=== PATIENT | female | born 1975 | race Asian ===

== ENCOUNTER 2017-04-18 20:50 | Inpatient (IN) | payer SELFPAY ==
[~2017-04-18] VITALS: Ht 157.5 cm; Wt 62.6 kg
[2017-04-18] MEDS ORDERED: OXYTOCIN 10 UNITS/ML VIAL IM SCH (21:30)
[2017-04-18] MEDS ORDERED: AMPICILLIN 2,000 MG in NACL 0.9% MINI-BAG PLUS 100 ML IV SCH (21:30)
[2017-04-18] MEDS ORDERED: BUPIVACAINE 0.125%/NS PREMIX 250 ML ONE (21:30)
[2017-04-18] MEDS ORDERED: CARBOPROST 250 MCG/ML AMP IM PRN (21:30)
[2017-04-18] MEDS ORDERED: OXYTOCIN 20 UNITS in LACTATED RINGERS 1,000 ML IV SCH (21:30)
[2017-04-18] MEDS ORDERED: METHYLERGONOVINE 0.2 MG/ML AMP IM PRN (21:30)
[2017-04-18] MEDS: LACTATED RINGERS 1,000 ML IV SCH ×2 (21:35→23:49)
[2017-04-18] MEDS ORDERED: AMPICILLIN 2,000 MG VIAL ONE (21:43)
[2017-04-18] MEDS ORDERED: OXYTOCIN 20 UNITS/LR PREMIX 1,000 ML IV ONE (21:44)
[2017-04-18 22:18] LABS: BASOPHILS # (AUTO) 0.2 K/uL (0.00-0.22); BASOPHILS % (AUTO) 2.1 % (0.0-2.0); EOSINOPHILS # (AUTO) 0.1 K/uL (0-0.4); EOSINOPHILS % (AUTO) 0.5 % (0.0-4.0); HEMATOCRIT 36.3 % (36-48); LYMPHOCYTES # (AUTO) 3.1 K/uL (2.5-16.5); LYMPHOCYTES % (AUTO) 26.7 % (20.5-51.1); MEAN CORPUSCULAR HEMOGLOBIN 31 pg (27-31); MEAN CORPUSCULAR HGB CONC 33 g/dL (33-37); MEAN CORPUSCULAR VOLUME 94 fL (80-94); MONOCYTES # (AUTO) 0.9 K/uL (0.8-1.0); MONOCYTES % (AUTO) 8.3 % (1.7-9.3); NEUTROPHILS # (AUTO) 7.1 K/uL (1.8-7.7); NEUTROPHILS % (AUTO) 62.4 % (42.2-75.2); PLATELET COUNT (AUTO) 170 K/uL (140-450); RED BLOOD CELL COUNT(AUTO) 3.86 MIL/uL (4.20-5.40); RED CELL DISTRIBUTION WIDTH 12.9 % (11.6-13.7); WHITE BLOOD COUNT (AUTO) 11.4 K/uL (4.8-10.8)
[2017-04-18 22:45] LABS: APPEARANCE,URINE SL CLOUDY (CLEAR); BILIRUBIN,URINE NEGATIVE (NEGATIVE); BLOOD, URINE 3+ (NEGATIVE); COLOR,URINE YELLOW (YELLOW); LEUKOCYTE ESTERASE ,URINE NEGATIVE (NEGATIVE); NITRITE, URINE NEGATIVE (NEGATIVE); UGLUCOSE NEGATIVE (NEGATIVE)
[2017-04-18 23:09] LABS: RBC,URINE 80-100 /HPF (0-5); WBC,URINE 0-5 (RARE) /HPF (0-5)
[2017-04-18] MEDS ORDERED: OXYTOCIN 10 UNITS/ML VIAL ONE (23:29)
[2017-04-18] MEDS ORDERED: PREN-546 PO (23:56)
[2017-04-18] MEDS ORDERED: FERR325E14 PO (23:56)
[2017-04-19] VITALS: BP 134/84
[2017-04-19] MEDS ORDERED: AMPICILLIN 1,000 MG in NACL 0.9% MINI-BAG PLUS 50 ML IV SCH ×2
[2017-04-19] MEDS ORDERED: HYDROcodone/APAP 5/325 MG 1 TAB TAB PO PRN (00:15)
[2017-04-19] MEDS ORDERED: MEASLES, MUMPS, AND RUBELLA 1 VIAL SQVAC PRN (00:15)
[2017-04-19] MEDS ORDERED: BENZOCAINE/MENTHOL 20%-0.5% 60 GM CAN TP PRN (00:15)
[2017-04-19] MEDS ORDERED: OXYTOCIN 10 UNITS/ML VIAL IM PRN (00:15)
[2017-04-19] MEDS ORDERED: oxyCODONE/APAP 5/325 MG 1 TAB TAB PO PRN (00:15)
[2017-04-19] MEDS ORDERED: TEMAZEPAM 15 MG CAP PO PRN (00:15)
[2017-04-19] MEDS ORDERED: METHYLERGONOVINE 0.2 MG/ML AMP IM PRN (00:15)
--- NOTE | 2017-04-19 08:37 | NUR ---
PATIENT HAS BEEN SCREENED AND CATEGORIZED LOW NUTRITION RISK. PATIENT WILL BE SEEN WITHIN 7 DAYS OF ADMISSION. 04/24/[address]
[2017-04-19] MEDS: IBUPROFEN 800 MG TAB PO PRN ×2 (08:39→14:48)
[2017-04-19] MEDS ORDERED: DOCUSATE SOD/SENNA 50/8.6 MG 1 TAB PO SCH (21:00)
[2017-04-20] MEDS: IBUPROFEN 800 MG TAB PO PRN ×3 (04:15→22:10)
[2017-04-21] MEDS ORDERED: IBUP-2218 PO (07:19)
[2017-04-21] MEDS: IBUPROFEN 800 MG TAB PO PRN (08:22)
== END 2017-04-21 12:30 | disposition home or self-care (01) | DRG 775 ==
LOC: MLD 20:50 → MFCC 04-19 04:00
PROVIDERS: ADMIT Obstetrics & Gynecology; ATTEND Obstetrics & Gynecology
PROC: 10E0XZZ Delivery of Products of Conception, External Approach (ICD-10-PCS; principal; 2017-04-19)
PROC: 0W8NXZZ Division of Female Perineum, External Approach (ICD-10-PCS; 2017-04-19)
PROC: 00HU33Z Insertion of Infusion Device into Spinal Canal, Percutaneous Approach (ICD-10-PCS; 2017-04-19)
PROC: 3E0R3BZ Introduction of Anesthetic Agent into Spinal Canal, Percutaneous Approach (ICD-10-PCS; 2017-04-19)
DX: O42.92 Full-term premature rupture of membranes, unspecified as to length of time between rupture and onset of labor (principal); Z37.0 Single live birth; Z3A.38 38 weeks gestation of pregnancy
CPT/HCPCS: 36415; 51702; 59409; 81001; 85018; 85025; 86592; 86886; 86900; 86901; J0290; J2590; J3490